=== PATIENT | female | born 1995 | race Caucasian/White ===

== ENCOUNTER 2017-08-04 09:24 | Emergency (ER) | payer BC ==
[2017-08-04 10:18] LABS: COLOR YELLOW; LEUKOCYTE ESTERASE,URINE 2+ (NEGATIVE); NITRITE,URINE POSITIVE (NEGATIVE)
[2017-08-04 10:23] LABS: BACTERIA 3+ /hpf (NONE SEEN); MUCUS 2+ /lpf (NONE-1+); RBC,URINE 50-182 /hpf (0-3); WBC,URINE 50-182 /hpf (0-3)
[2017-08-04] MEDS ORDERED: NS 1,000 ML IV ONE ×2 (10:40→11:02)
--- NOTE | 2017-08-04 11:01 | EDPHY ---
H & P Smoking Status: Never smoked Time Seen by Provider: 08/04/17 09:37 HPI/ROS: CHIEF COMPLAINT: Flank pain, abdominal pain HISTORY OF PRESENT ILLNESS: 21-year-old female presents to the emergency department complaining of left-sided abdominal pain and some mild left flank pain that began abruptly last evening. She states "it felt like I got stabbed ". She has never had pain like this in the past. No vomiting. She did feel nauseous. No fevers or chills. No urinary symptoms. No pain on her right back area. No other abdominal pain. Last menstrual period was 2-3 weeks ago and she denies . Denies any reported trauma. She did take some ibuprofen last night. Normal bowel movement yesterday. REVIEW OF SYSTEMS: Constitutional: No fever, no chills. Eyes: No double or blurry vision. ENT: No sore throat. Respiratory: No cough, no shortness of breath. Cardiac: No chest pain. Gastrointestinal: Abdominal pain as above. No vomiting or diarrhea. Genitourinary: No dysuria. Musculoskeletal: No neck or back pain. Skin: No rashes. Neurological: No headache. (Domonique Remyrina Primo) Past Medical/Surgical History: Negative (Domonique Remylilia Tillman) Social History: [employer] student (Marc Remy) Physical Exam: General Appearance: Alert, no distress. Afebrile. No apparent distress. Eyes: Pupils equal and round. Extraocular motions are all intact. ENT: Mouth: Mucous membranes moist. Respiratory: No wheezing, rhonchi, or rales, lungs are clear to auscultation. Cardiovascular: Regular rate and rhythm. Gastrointestinal: Abdomen is soft. She does have mild pain with palpation in the left upper quadrant. There is no rebound, guarding or masses noted. Mild CVA tenderness on the left, none on the right. Neurological: Alert and oriented x 3, cranial nerves II through XII grossly intact Skin: Warm and dry, no rashes. Musculoskeletal: Nontender to palpate along the cervical, thoracic or lumbar spine. Neck is supple. Extremities: Full range of motion and no peripheral edema. Psychiatric: Patient is oriented X 3, there is no agitation. (Domonique Remyrina Primo) Constitutional: Initial Vital Signs Temperature (C) 36.8 C 08/04/17 09:27 Heart Rate 77 08/04/17 09:27 Respiratory Rate 17 08/04/17 09:27 Blood Pressure 134/69 H 08/04/17 09:27 O2 Sat (%) 98 08/04/17 09:27 O2 Delivery Mode Room Air Allergies/Adverse Reactions: contrast dye Allergy (Uncoded 08/04/17 09:26) Home Medications: Medication Instructions Recorded Cephalexin [Keflex] 500 mg PO QID #40 cap 08/04/17 Medical Decision Making - Diagnostics Imaging: Discussed imaging studies w/ data management analyst Radiologist, I viewed and interpreted images myself - Diagnostics Imaging Results: Imaging Impressions Abdomen/Pelvis Ultrasound 08/04/17 10:32 Impression: Minimal prominence of the collecting systems bilaterally could reflect obstructive uropathy. As clinically directed, noncontrast CT could be considered for further assessment. Results called and discussed with MARC REMY on 08/04/2017 at 13:32 Abdomen/Pelvis CT 08/04/17 13:31 Impression: 1. Negative for nephrolithiasis or obstructive uropathy. 2. Trace of fluid in the cul-de-sac may be related to ruptured ovarian cyst. Results called and discussed with MARC REMY on 08/04/2017 at 15:30 ED Course/Re-evaluation: 21-year-old female presents to the emergency department with left-sided abdominal pain and left flank pain. Urinalysis reveals large amount of white blood cells and red blood cells with bacteria present. Urine cultures pending. Clinically I think this patient has pyelonephritis. She was given 1 g of ceftriaxone IV. The patient was monitored throughout her stay in the emergency department. She will get waves of severe pain that would bring her to tears in the left flank. I was concerned about possible kidney stone. Renal ultrasound was ordered which revealed hydronephrosis is worse on the right compared to the left. Patient continued to have ongoing flank pain. She required some IV fentanyl for her pain. CT imaging of the abdomen pelvis was ordered to rule out possible associated kidney stone. I discussed the pros and cons including radiation exposure with the patient and she verbalized understanding and agreed. CT imaging of the abdomen and pelvis without contrast was reported to me by Dr. Robert Luna and revealed no evidence of kidney stones. Patient was comfortable being discharged home. She received IV ceftriaxone in the emergency department we discharged with Keflex. She will call for the results of her urine culture and was instructed to return if she developed fever , vomiting, worsening pain, or if she felt worse in any way. (Domonique Remyrina Primo) Differential Diagnosis: Including but not limited to pyelonephritis, kidney stone, urinary tract infection (Domonique Remyrinalex Tillman) Other Provider: Independent physician evaluation I evaluated and participated in the management of the patient. I also evaluated the patient independently. My co-signature indicates that I have reviewed this chart and I agree with the findings and plan of care as documented. My personal H&P findings include: The patient presents the ED for evaluation of acute left flank pain. The patient denies any antecedent dysuria or hematuria. She has no prior history of UTI. The patient denies significant past medical history. She has no history of recent surgery. Physician physical exam General Appearance: Alert, no distress Eyes: Pupils equal and round no pallor or injection ENT, Mouth: Mucous membranes moist Respiratory: There are no retractions, lungs are clear to auscultation Cardiovascular: Regular rate and rhythm Gastrointestinal: Abdomen is soft and nontender, no masses, bowel sounds normal Back: Left CVA tenderness Neurological: 5/5 strength all 4 extremities Skin: Warm and dry, no rashes Musculoskeletal: Neck is supple nontender Extremities: symmetrical, full range of motion ED course: The patient presents to the ED for evaluation of acute left flank pain. She was noted to have pyuria and hematuria on her urinalysis. Ultrasound of the retroperitoneum did demonstrate possible obstructive uropathy. A CT scan of the abdomen pelvis was obtained and reviewed by myself. This study demonstrated no evidence of obvious ureterolithiasis by my interpretation. The patient had an IV established. She received IV ceftriaxone and anti- inflammatory medications. The patient was re-evaluated by myself at 3:00 p.m.. She is currently feeling better. She will be treated with Keflex as an outpatient. She will be discharged home with customary pyelonephritis aftercare instructions. (Gunnar Muse) - Data Points Laboratory Results: Laboratory Results 08/04/17 10:38 08/04/17 10:38 08/04/17 08/04/17 12 10:38 10:38 10:38 WBC 12.51 10^3/uL H 10^3/uL (3.80-9.50) RBC 4.03 10^6/uL L 10^6/uL (4.18-5.33) Hgb 12.6 g/dL g/dL (12.6-16.3) Hct 36.7 % L % (38.0-47.0) MCV 91.1 fL fL (81.5-99.8) MCH 31.3 pg pg (27.9-34.1) MCHC 34.3 g/dL g/dL (32.4-36.7) RDW 12.5 % % (11.5-15.2) Plt Count 264 10^3/uL 10^3/uL (150-400) MPV 10.7 fL fL (8.7-11.7) Neut % (Auto) 75.1 % H % (39.3-74.2) Lymph % (Auto) 15.2 % % (15.0-45.0) Woodson % (Auto) 8.4 % % (4.5-13.0) Eos % (Auto) 0.6 % % (0.6-7.6) Baso % (Auto) 0.5 % % (0.3-1.7) Nucleat RBC Rel Count 0.0 % % (0.0-0.2) Absolute Neuts (auto) 9.40 10^3/uL H 10^3/uL (1.70-6.50) Absolute Lymphs (auto) 1.90 10^3/uL 10^3/uL (1.00-3.00) Absolute Monos (auto) 1.05 10^3/uL H 10^3/uL (0.30-0.80) Absolute Eos (auto) 0.07 10^3/uL 10^3/uL (0.03-0.40) Absolute Basos (auto) 0.06 10^3/uL 10^3/uL (0.02-0.10) Absolute Nucleated RBC 0.00 10^3/uL 10^3/uL (0-0.01) Immature Gran % 0.2 % % (0.0-1.1) Immature Gran # 0.03 10^3/uL 10^3/uL (0.00-0.10) Sodium 144 mEq/L mEq/L (134-144) Potassium 3.8 mEq/L mEq/L (3.5-5.2) Chloride 104 mEq/L mEq/L (97-110) Carbon Dioxide 27 mEq/l mEq/l (22-31) Anion Gap 13 mEq/L mEq/L (8-16) BUN 11 mg/dL mg/dL (7-23) Creatinine 0.8 mg/dL mg/dL (0.6-1.0) Estimated GFR > 60 Glucose 65 mg/dL L mg/dL (70-100) Calcium 10.1 mg/dL mg/dL (8.5-10.4) Beta HCG, Qual NEGATIVE Urine Color Urine Appearance Urine pH Ur Specific Mccurtain Urine Protein Urine Ketones Urine Blood Urine Nitrate Urine Bilirubin Urine Urobilinogen Ur Leukocyte Esterase Urine RBC Urine WBC Ur Epithelial Cells Urine Bacteria Urine Mucus Urine Glucose 08/04/17 10:00 WBC RBC Hgb Hct MCV MCH MCHC RDW Plt Count MPV Neut % (Auto) Lymph % (Auto) Woodson % (Auto) Eos % (Auto) Baso % (Auto) Nucleat RBC Rel Count Absolute Neuts (auto) Absolute Lymphs (auto) Absolute Monos (auto) Absolute Eos (auto) Absolute Basos (auto) Absolute Nucleated RBC Immature Gran % Immature Gran # Sodium Potassium Chloride Carbon Dioxide Anion Gap BUN Creatinine Estimated GFR Glucose Calcium Beta HCG, Qual Urine Color YELLOW Urine Appearance TURBID Urine pH 6.0 (5.0-7.5) Ur Specific [place] 1.014 (1.002-1.030) Urine Protein 2+ H (NEGATIVE) Urine Ketones NEGATIVE (NEGATIVE) Urine Blood 3+ H (NEGATIVE) Urine Nitrate POSITIVE H (NEGATIVE) Urine Bilirubin NEGATIVE (NEGATIVE) Urine Urobilinogen NEGATIVE EU EU (0.2-1.0) Ur Leukocyte Esterase 2+ H (NEGATIVE) Urine RBC 50-182 /hpf H /hpf (0-3) Urine WBC 50-182 /hpf H /hpf (0-3) Ur Epithelial Cells 1+ /lpf /lpf (NONE-1+) Urine Bacteria 3+ /hpf H /hpf (NONE SEEN) Urine Mucus 2+ /lpf H /lpf (NONE-1+) Urine Glucose NEGATIVE (NEGATIVE) Medications Given: Discontinued Medications Fentanyl (Sublimaze) 50 mcg IVP EDNOW ONE Stop: 08/04/17 11:03 Last Admin: 08/04/17 11:38 Dose: 50 mcg Sodium Chloride (Ns) 1,000 mls @ 0 mls/hr IV ONCE ONE PRN Reason: Wide Open Stop: 08/04/17 10:41 Last Admin: 08/04/17 10:40 Dose: 1,000 mls Ceftriaxone Sodium/Dextrose (Rocephin 1 Gm (Premix)) 50 mls @ 100 mls/hr IV EDNOW ONE PRN Reason: Protocol Stop: 08/04/17 11:16 Last Admin: 08/04/17 10:56 Dose: 50 mls Sodium Chloride (Ns) 1,000 mls @ 0 mls/hr IV ONCE ONE PRN Reason: Wide Open Stop: 08/04/17 11:03 Last Admin: 08/04/17 11:39 Dose: 1,000 mls Ketorolac Tromethamine (Toradol) 30 mg IVP EDNOW ONE Stop: 08/04/17 13:32 Last Admin: 08/04/17 13:41 Dose: 30 mg Ondansetron HCl (Zofran) 4 mg IVP EDNOW ONE Stop: 08/04/17 11:03 Last Admin: 08/04/17 11:38 Dose: 4 mg Departure - Departure Disposition: Home, Routine, Self-Care Clinical Impression: Acute pyelonephritis Condition: Good Instructions: Kidney Infection (ED), Flank Pain (ED) Additional Instructions: Call [phone] for the results of your urine culture in 48 hr. Keflex 500 mg 4 times daily for 10 days. Return to the emergency department if you developed vomiting, fever, worsening flank pain, or if you feel worse in any way. Referrals: VANE HINKLE [Other] - As per Instructions Prescriptions: Cephalexin [Keflex] 500 mg PO QID #40 cap
[2017-08-04] MEDS ORDERED: fentaNYL 100 MCG/2 ML INJ IVP ONE (11:02)
[2017-08-04] MEDS ORDERED: ONDANSETRON 4 MG/2 ML VIAL IVP ONE (11:02)
[2017-08-04 11:11] LABS: % IMMATURE GRANULYOCYTES 0.2 % (0.0-1.1); ABSOLUTE IMMATURE GRANULOCYTES 0.03 10^3/uL (0.00-0.10); ADD DIFF? NO; ADD MORPH? NO; ADD SCAN? NO; ATYPICAL LYMPHOCYTE FLAG 0 (0-99); FRAGMENT RBC FLAG 0 (0-99); HEMATOCRIT 36.7 % (38.0-47.0); HEMOGLOBIN 12.6 g/dL (12.6-16.3); LEFT SHIFT FLG 0 (0-99); LIPEMIA HEMOLYSIS FLAG 90 (0-99); MEAN CELL HEMOGLOBIN 31.3 pg (27.9-34.1); MEAN CELL HEMOGLOBIN CONCENTR. 34.3 g/dL (32.4-36.7); MEAN CELL VOLUME 91.1 fL (81.5-99.8); MEAN PLATELET VOLUME 10.7 fL (8.7-11.7); PLATELET CLUMPS FLAG 0 (0-99); PLATELET COUNT 264 10^3/uL (150-400); RED BLOOD CELL COUNT 4.03 10^6/uL (4.18-5.33); RED CELL DISTRIBUTION WIDTH 12.5 % (11.5-15.2)
[2017-08-04 11:25] LABS: ANION GAP 13 mEq/L (8-16); CALCIUM 10.1 mg/dL (8.5-10.4); CARBON DIOXIDE 27 mEq/l (22-31); CHLORIDE 104 mEq/L (97-110); CREATININE 0.8 mg/dL (0.6-1.0); GLOMERULAR FILTRATION RATE > 60; GLUCOSE 65 mg/dL (70-100); POTASSIUM 3.8 mEq/L (3.5-5.2); SODIUM 144 mEq/L (134-144)
[2017-08-04 12:06] VITALS: RESP 18
[2017-08-04] MEDS ORDERED: KETOROLAC 30 MG/1 ML SDV IVP ONE (13:31)
[2017-08-04 15:27] VITALS: BP 107/69; PULSE 68; TEMP 98.4; O2SAT 97
== END 2017-08-04 15:23 | disposition home or self-care (01) ==
DX: N10 Acute pyelonephritis (principal); E86.9 Volume depletion, unspecified; B96.20 Unspecified Escherichia coli [E. coli] as the cause of diseases classified elsewhere
CPT/HCPCS: 96365; J0696; J1885; J2405; J3010

== ENCOUNTER 2017-11-25 18:33 | Emergency (ER) | payer BC ==
[2017-11-25 18:39] VITALS: TEMP 98.4
[2017-11-25] MEDS ORDERED: NS 1,000 ML IV ONE ×2 (18:50)
[2017-11-25] MEDS ORDERED: ONDANSETRON 4 MG/2 ML VIAL IVP ONE (18:50)
[2017-11-25 18:56] LABS: PLATELET COUNT 225 10^3/uL (150-400)
--- NOTE | 2017-11-25 19:11 | CPEKG ---
Heart Rate: 91 RR Interval: 659 P-R Interval: 160 QRSD Interval: 94 QT Interval: 356 QTC Interval: 439 P Ventura: 66 QRS Ventura: 68 T Wave Ventura: 42 EKG Severity - NORMAL ECG - EKG Impression: SINUS RHYTHM Electronically Signed By: Esperanza Gong 25-Nov-2017 20:36:53
--- NOTE | 2017-11-25 19:59 | EDPHY ---
H & P Stated Complaint: ST, fevers, N/V starting Saturday-sent from [facility] Time Seen by Provider: 11/25/17 18:44 HPI/ROS: Chief complaint: Cold symptoms, abdominal discomfort with nausea and vomiting History of present illness: This is a 22-year-old female who was sent from [facility] for evaluation of persistent cold symptoms as well as abdominal discomfort nausea and vomiting. Patient has been sick for the last few days. She reports fevers. She reports sore throat. She has had upset stomach with nausea and vomiting. She is feeling fatigued. She denies other associated signs or symptoms including no cough, no trouble breathing, no diarrhea, no urinary symptoms. No headache, no neck pain, no rash. Review of systems: A 10 point review of systems was obtained and other than described above was negative - Personal History Current Tetanus/Diphtheria Vaccine: Yes Current Tetanus Diphtheria and Acellular Pertussis (TDAP): Yes Tetanus Vaccine Date: < 20 years - Medical/Surgical History Hx Asthma: No Hx Chronic Respiratory Disease: No Hx Diabetes: No Hx Cardiac Disease: No Hx Renal Disease: No Hx Cirrhosis: No Hx Alcoholism: No Hx HIV/AIDS: No Hx Splenectomy or Spleen Trauma: No Other PMH: tonsilllectomy, rhinoplasty - Social History Smoking Status: Never smoked - Physical Exam Exam: General Appearance: Alert, no distress. Eyes: Pupils equal and round no pallor or injection. ENT, Mouth: Tympanic membranes, external auditory canals, external ears and surrounding soft tissue including over the mastoids are unremarkable. Nasopharynx is not injected. There is no rhinorrhea. Oropharynx is mildly injected. There is no edema. There is no exudate. There is no asymmetry. The uvula is midline. No elevation of the tongue. There is no hoarseness, no drooling, no trismus, no stridor. Respiratory: There are no retractions, lungs are clear to auscultation. Cardiovascular: Regular rate and rhythm. Gastrointestinal: Abdomen is soft and non tender, no masses, bowel sounds normal. Neurological: Alert and oriented x4. Strength and sensation intact and symmetrical. No meningismus. Skin: Warm and dry, no rashes. Musculoskeletal: Neck is supple non tender. Extremities are symmetrical, full range of motion. Psychiatric: Patient is oriented X 3, there is no agitation. Constitutional: Initial Vital Signs Temperature (C) 36.9 C 11/25/17 18:37 Heart Rate 98 11/25/17 18:37 Respiratory Rate 20 11/25/17 18:37 Blood Pressure 95/75 L 11/25/17 18:37 O2 Sat (%) 97 11/25/17 18:37 O2 Delivery Mode Room Air Allergies/Adverse Reactions: contrast dye Allergy (Uncoded 11/25/17 18:36) Home Medications: Medication Instructions Recorded NK [No Known Home Meds] 11/25/17 Medical Decision Making ED Course/Re-evaluation: Patient seen under the supervision of my secondary supervising physician Dr. Chris Harris. Patient presents to the emergency department as discussed above. She is nontoxic. Evaluation is unremarkable. She is symptomatically treated and feeling much better. She is comfortable being discharged home. Home care is discussed. She is asked to follow up with [facility] this week for recheck. Strict return precautions are given. Patient voiced understanding and agreement with plan. Differential Diagnosis: Included but not limited to pharyngitis, strep pharyngitis, influenza, RSV, gastritis, gastroenteritis, biliary tract disease, pancreatitis, and associated complications - Data Points Laboratory Results: Laboratory Results 11/25/17 18:50 11/25/17 18:50 Medications Given: Discontinued Medications Sodium Chloride (Ns) 1,000 mls @ 0 mls/hr IV EDNOW ONE; Wide Open PRN Reason: Protocol Stop: 11/25/17 18:51 Last Admin: 11/25/17 18:59 Dose: 1,000 mls Sodium Chloride (Ns) 1,000 mls @ 0 mls/hr IV EDNOW ONE; Wide Open PRN Reason: Protocol Stop: 11/25/17 18:51 Last Admin: 11/25/17 19:00 Dose: 1,000 mls Ondansetron HCl (Zofran) 4 mg IVP EDNOW ONE Stop: 11/25/17 18:51 Last Admin: 11/25/17 19:00 Dose: 4 mg Departure - Departure Disposition: Home, Routine, Self-Care Clinical Impression: Sore throat, Vomiting Condition: Good Instructions: Acute Nausea and Vomiting (ED) Additional Instructions: Follow-up with student health in the next 1-2 days for recheck Drink plenty of fluids to stay hydrated If symptoms worsen or new symptoms develop return to the emergency room for recheck Referrals: EITAN ARREAGA [Other] - As per Instructions Stand Alone Forms: School Excuse
[2017-11-25 20:03] VITALS: BP 109/87; PULSE 89; RESP 16; O2SAT 98
== END 2017-11-25 20:08 | disposition home or self-care (01) ==
DX: J02.9 Acute pharyngitis, unspecified (principal); R11.10 Vomiting, unspecified; E86.9 Volume depletion, unspecified
CPT/HCPCS: 96374; J2405

== ENCOUNTER 2018-09-09 16:14 | Emergency (ER) | payer BC ==
[2018-09-09 16:28] VITALS: BP 106/66
[2018-09-09] MEDS ORDERED: diphenhydrAMINE 25 MG CAP PO ONE (16:45)
== END 2018-09-09 16:46 | disposition left against medical advice (07) ==
DX: Z53.21 Procedure and treatment not carried out due to patient leaving prior to being seen by health care provider (principal)

== ENCOUNTER → 2018-10-18 | Outpatient (CLI) | payer BC | LOC: BMCIMAGING 16:31 ==

== ENCOUNTER 2018-10-21 19:11 | Emergency (ER) | payer BC ==
--- NOTE | 2018-10-21 20:18 | EDPHY ---
General Time Seen by Provider: 10/21/18 20:00 Narrative: CLINICAL IMPRESSION: Right ankle and heel pain ASSESSMENT/PLAN: Patient is a 23-year-old female with no significant medical history who presents with complaint of right ankle and heel pain after jumping off approximately 7 ft fence 4 days prior. Patient is nontoxic-appearing, she is in no acute distress on arrival. Ankle and foot x-rays reveal no acute bony abnormality. There was no evidence of acute fracture, dislocation, compartment syndrome or neurovascular compromise. She had no tenderness inferior to the malleoli to suggest ligamentous injury. She had no neck or back pain to suggest traumatic spinal injury, no evidence of cauda equina. Her history and physical examination is most consistent with right ankle and heel pain likely contusion. The patient was placed in a walking boot, CMS remained intact. Patient declined any need for pain medication in the emergency department, she will continue Tylenol and/or ibuprofen as needed at home. She does not have a primary care provider, I provided both a PCP and orthopedic referral for her. She understands the importance of close follow- up. We discussed trying to limit the amount of walking she is doing as this has increased her pain over the last day. Return precautions discussed-patient to return to the emergency Department for significantly worsening or uncontrolled pain, significant swelling, numbness or tingling of the extremity, paleness or coolness of her digits, fever or for any other concerning symptom. The patient verbalizes understanding and she is in agreement with this plan. DIFFERENTIAL DX: Differential diagnosis including but not limited to sprain, contusion, fracture , dislocation ED procedure: Procedure: Splint placement. A walking boot was applied. After application of the walking boot I returned and re-examined the patient. The splint was adequately immobilizing the joint and distal to the splint the patient's circulation and sensation was intact. ED COURSE: 2005: Discussed with Dr. Chau 2114: On reexamination the patient reports she is much more comfortable in the walking boot. CMS remained intact. No further questions prior to discharge. CHIEF COMPLAINT: Right ankle and heel pain HPI: Patient is a 23-year-old female with no significant medical history who presents to the emergency department with complaints of right heel and ankle pain after jumping off a 7 ft fence 4 days prior. Patient reports on Saturday she was out doing some sliding, they climbed over a fence to get to a [place] and when she jumped off the fence she experienced pain in her right heel. She has been able to walk on it however yesterday and today the pain has been increasing as she has been walking a lot. The patient did not hit her head, there was no loss of consciousness. She denies any neck pain, back pain, hip pain or other leg pain. She has been taking Tylenol and ibuprofen with little relief. She describes the pain as sharp, mostly located on her heel however sometimes up the right side of her leg. She denies any swelling or bruising. She denies any other injury or complaint. PAST MEDICAL HISTORY: Denies Pertinent Past Surgical History: Denies Family History: Noncontributory Social History: Occasional alcohol, denies smoking ROS: A full 10 point review of systems was negative except for those mentioned in HPI. PHYSICAL EXAM: General Appearance: Well-appearing, no acute distress. HENT: External ears are normal. TMs are clear bilaterally. Oropharynx clear is no erythema or exudates, no tonsillar hypertrophy or asymmetry. Dentition without abnormality. Eyes: PERRLA, EOMI intact without evidence of entrapment. Conjunctiva pink, no pallor or injection. Neck: Supple, nontender, no lymphadenopathy. Patient has no midline cervical spinal tenderness to palpation, there is no step-off or deformity. She has no paraspinal muscle tenderness to palpation. Full range of motion. Respiratory: There are no retractions, lungs are clear to auscultation. No chest wall tenderness. Cardiac: Regular rate and rhythm, no murmurs or gallops. Back: No step-off, palpable bony abnormality, edema, erythema or ecchymosis of the cervical, thoracic or lumbar spines. Patient has no tenderness to palpation of the midline thoracic or lumbar spines. No tenderness to palpation of the paraspinal muscles. Full range of motion of all spines. 5/5 and equal strength of the UEs and LEs bilaterally including shoulder shrug. Pulses: 2+ and equal radial, DP and PT pulses bilaterally. Sensation intact and symmetric to light touch from face, UEs and LEs bilaterally. Pelvis is stable and nontender. Gastrointestinal: Abdomen is soft, nontender, bowel sounds normal, no masses/ hernia, no rigidity, guarding or focal peritoneal findings. Skin: Warm, dry, no rashes, no nodules on palpation. Upper Extremities: Intact distal pulses, Full range of motion intact, no tenderness, no ecchymosis or edema. Lower Extremities: Right foot and ankle are normal appearing and without swelling. Patient has no tenderness to palpation in the 1st webspace, navicular bone or base of the 5th metatarsal. She has no medial malleolar tenderness. Patient is tender mildly superior to the lateral malleolus as well as the heel. She has no tenderness along her Achilles tendon, she has no calf tenderness. She has no tibial tenderness, no proximal fibular head tenderness. Her knee is nontender with full range of motion. Thigh compartment is soft and nontender. 2+ dorsalis pedis and posterior tibialis. MEDICAL DECISION MAKING: Patient was seen independently. Secondary supervising physician at time of evaluation was Dr. Chau, he did not evaluate this patient. Diagnosis: Right ankle and foot pain. New, requires workup Summary: See Assessment and Plan for summary of ED visit Clinical lab tests: Not applicable. Independent visualization of images, tracing, or specimens: Yes. Decision to obtain medical records or history from someone other than the patient: No Review / Summarize previous medical records: Yes Discussed patient with another provider: Yes, Dr. Chau Patient Progress: Stable, discharge. - Diagnostics Imaging Results: Imaging Impressions Ankle X-Ray 10/21/18 19:24 Impression: No acute osseous findings. Foot X-Ray 10/21/18 19:36 Impression: No acute osseous findings. - History Smoking Status: Never smoked - Objective Vital Signs: Initial Vital Signs Temperature (C) 36.9 C 10/21/18 19:20 Heart Rate 86 10/21/18 19:20 Respiratory Rate 16 10/21/18 19:20 Blood Pressure 111/76 10/21/18 19:20 O2 Sat (%) 100 10/21/18 19:20 O2 Delivery Mode Room Air Allergies/Adverse Reactions: contrast dye Allergy (Uncoded 10/21/18 19:18) Home Medications: Medication Instructions Recorded [facility] 10/21/18 Departure - Departure Disposition: Home, Routine, Self-Care Clinical Impression: Heel pain Qualifiers: Laterality: right Qualified Code(s): M79.671 - Pain in right foot Ankle pain, right Qualifiers: Chronicity: acute Qualified Code(s): M25.571 - Pain in right ankle and joints of right foot Condition: Good Instructions: Foot Contusion (ED) Additional Instructions: DISCHARGE INSTRUCTIONS FROM YOUR DOCTOR Thank you for visiting our emergency department today. Please keep in mind that discharge from the emergency department does not mean that there is nothing wrong - it simply means that we have not identified an emergency condition that requires further evaluation or treatment in the hospital. You should always plan to follow up with primary care for re-evaluation of your condition in the next 2-3 days. If you have been referred to a specialist, please call as soon as possible ( today or tomorrow) to schedule your follow up appointment at the appropriate time. You have been provided a referral to Orthopedics, please call if your symptoms are not improving by the end of the week. Rest, ice (on and off), elevate the foot and ankle as much possible above the level of the heart to decrease pain and swelling. Wear the Chad for compression and splint for comfort. Ambulate as tolerated. For pain, Ibuprofen 400 mg every 6 hours. Do not exceed 2400 mg of ibuprofen in 24 hours. Stop taking this if it upsets her stomach. Tylenol 500 mg every 6 hours. Do not exceed 3000 mg in a 24-hour period. Continue your regular medications as prescribed. Return for increased pain or swelling, numbness, tingling or foot or toes, calf pain, paleness or coolness of the foot or toes or for any worsening or worrisome symptoms. People present with illnesses and injuries in different ways, and it is always possible that we have missed something. You may always return for re-evaluation if symptoms worsen or if they are not improving or if you develop new/different symptoms. Again, thank you for choosing our emergency department. We hope that you feel better. Referrals: EITAN ARREAGA [Other] - As per Instructions Rj Catherine DO [Doctor of Osteopathy] - Follow Up Only If Needed ( Establish care if you do not have a primary care provider.) Willard Cassidy MD [Medical Doctor] - 2-3 days, call for appt.
[2018-10-21 21:19] VITALS: BP 113/69
== END 2018-10-21 21:18 | disposition home or self-care (01) ==
DX: S99.911A Unspecified injury of right ankle, initial encounter (principal); S99.921A Unspecified injury of right foot, initial encounter; X50.9XXA Other and unspecified overexertion or strenuous movements or postures, initial encounter; Y92.9 Unspecified place or not applicable; Y99.9 Unspecified external cause status; Y93.9 Activity, unspecified
CPT/HCPCS: L4386